=== PATIENT | female | born 1965 | race Caucasian/White ===

== ENCOUNTER 2017-06-08 19:07 | Emergency (ER) | payer OTHER ==
[~2017-06-08] VITALS: Ht 162.6 cm; Wt 65.9 kg
[2017-06-08] MEDS ORDERED: LOSA50TA37 PO (19:13)
[2017-06-08 19:29] VITALS: BP 154/78
[2017-06-08] MEDS ORDERED: IBUPROFEN 600 MG TABLET PO ONE (19:45)
== END 2017-06-08 20:59 | disposition home or self-care (01) ==
LOC: EMS 19:09 → EEVIPCON 19:09 → EMS 20:59
DX: S50.01XA Contusion of right elbow, initial encounter (principal); I10 Essential (primary) hypertension; K21.9 Gastro-esophageal reflux disease without esophagitis; W20.8XXA Other cause of strike by thrown, projected or falling object, initial encounter; Y93.89 Activity, other specified; Y92.69 Other specified industrial and construction area as the place of occurrence of the external cause; Y99.0 Civilian activity done for income or pay
CPT/HCPCS: 99284

== ENCOUNTER → 2017-08-20 | Outpatient (CLI) | payer OTHER ==
[~2017-08-20] MED LIST: LOSA50TA37 PO
== END | disposition home or self-care (01) ==
LOC: RADPV 10:05
PROVIDERS: ATTEND Nurse Practitioner
DX: R94.5 Abnormal results of liver function studies (principal); R10.11 Right upper quadrant pain
CPT/HCPCS: 76705

== ENCOUNTER → 2017-10-29 | Outpatient (CLI) | payer OTHER ==
[2017-10-29 11:34] LABS: BASOPHILS % (AUTO) 0.9 % (0.0-2.0); EOSINOPHILS % (AUTO) 4.8 % (1.0-6.0); HEMATOCRIT 39.7 % (36-46); HEMOGLOBIN 13.8 g/dL (12.0-16.0); LYMPHOCYTES # (AUTO) 3.1 K/uL (1.0-4.8); LYMPHOCYTES % (AUTO) 41.8 % (22.0-44.0); MEAN CORPUSCULAR HEMOGLOBIN 29.3 pg (26.0-34.0); MEAN CORPUSCULAR HGB CONC 34.8 G/dL (31.0-37.0); MEAN CORPUSCULAR VOLUME 84 fL (80-100); MONOCYTES # (AUTO) 0.5 K/uL (0.1-1.0); MONOCYTES % (AUTO) 6.9 % (2.0-9.0); NEUTROPHILS # (AUTO) 3.4 K/uL (1.8-7.7); NEUTROPHILS % (AUTO) 45.6 % (40.0-70.0); PLATELET COUNT (AUTO) 348 K/uL (150-450); RED BLOOD CELL COUNT(AUTO) 4.72 MIL/uL (4.00-5.20); RED CELL DISTRIBUTION WIDTH 12.8 % (11.5-14.5)
[2017-10-29 12:13] LABS: ALANINE AMINOTRANSFERASE 69 U/L (12-78); ALBUMIN 4.2 g/dL (3.4-5.0); ALKALINE PHOSPHATASE 138 U/L (46-116); ANION GAP 9 mmol/L (8-16); ASPARTATE AMINOTRANSFERASE 37 U/L (15-37); BILIRUBIN,TOTAL 0.5 mg/dL (0.1-1.0); CALCIUM, TOTAL 9.6 mg/dL (8.8-10.5); CARBON DIOXIDE 28 mmol/L (22-29); CHLORIDE 105 mmol/L (98-107); CHOL/HDL RATIO 3.3 (3.9-5.7); CHOLESTEROL 248 mg/dL (131-200); CREATININE 0.76 mg/dL (0.60-1.30); GLOMERULAR FILTR. RATE CALC > 60 mL/min (>60); GLUCOSE,RANDOM 78 mg/dL (70-110); HDL CHOLESTEROL 75 mg/dL (40-60); LDL CHOL (CALC.) 158 mg/dL (0-130); SODIUM SERUM 142 mmol/L (136-145); TOTAL PROTEIN, SERUM 7.9 g/dL (6.4-8.2); TRIGLYCERIDES 76 mg/dL (15-150); UREA NITROGEN, BLOOD 16 mg/dL (7-18)
== END | disposition home or self-care (01) ==
LOC: LABPV 09:10
PROVIDERS: ATTEND Nurse Practitioner
DX: I10 Essential (primary) hypertension (principal); E78.1 Pure hyperglyceridemia; E55.9 Vitamin D deficiency, unspecified
CPT/HCPCS: 82306

== ENCOUNTER → 2018-03-28 | Outpatient (CLI) | payer OTHER ==
[2018-03-28 10:25] LABS: BASOPHILS % (AUTO) 0.3 % (0.0-2.0); EOSINOPHILS % (AUTO) 0.1 % (1.0-6.0); HEMATOCRIT 38.8 % (36-46); HEMOGLOBIN 13.1 g/dL (12.0-16.0); LYMPHOCYTES # (AUTO) 2.4 K/uL (1.0-4.8); LYMPHOCYTES % (AUTO) 23.2 % (22.0-44.0); MEAN CORPUSCULAR HEMOGLOBIN 28.9 pg (26.0-34.0); MEAN CORPUSCULAR HGB CONC 33.7 G/dL (31.0-37.0); MEAN CORPUSCULAR VOLUME 86 fL (80-100); MONOCYTES # (AUTO) 0.5 K/uL (0.1-1.0); MONOCYTES % (AUTO) 4.5 % (2.0-9.0); NEUTROPHILS # (AUTO) 7.5 K/uL (1.8-7.7); NEUTROPHILS % (AUTO) 71.9 % (40.0-70.0); PLATELET COUNT (AUTO) 327 K/uL (150-450); RED BLOOD CELL COUNT(AUTO) 4.52 MIL/uL (4.00-5.20); RED CELL DISTRIBUTION WIDTH 13.6 % (11.5-14.5)
[2018-03-28 10:57] LABS: ALANINE AMINOTRANSFERASE 41 U/L (12-78); ALBUMIN 3.6 g/dL (3.4-5.0); ALKALINE PHOSPHATASE 98 U/L (46-116); ANION GAP 6 mmol/L (8-16); ASPARTATE AMINOTRANSFERASE 27 U/L (15-37); BILIRUBIN,TOTAL 0.4 mg/dL (0.1-1.0); CALCIUM, TOTAL 9.4 mg/dL (8.8-10.5); CARBON DIOXIDE 29 mmol/L (22-29); CHLORIDE 106 mmol/L (98-107); CHOL/HDL RATIO 2.4 (3.9-5.7); CHOLESTEROL 232 mg/dL (131-200); CREATININE 0.78 mg/dL (0.60-1.30); FREE THYROXINE INDEX 3.4 (1.4-4.5); GLOMERULAR FILTR. RATE CALC > 60 mL/min (>60); GLUCOSE,RANDOM 103 mg/dL (70-110); HDL CHOLESTEROL 98 mg/dL (40-60); LDL CHOL (CALC.) 119 mg/dL (0-130); POTASSIUM 4.6 mmol/L (3.5-5.1); SODIUM SERUM 141 mmol/L (136-145); T3 UPTAKE 34 % (31-39); TOTAL PROTEIN, SERUM 7.1 g/dL (6.4-8.2); TRIGLYCERIDES 73 mg/dL (15-150); UREA NITROGEN, BLOOD 14 mg/dL (7-18)
== END | disposition home or self-care (01) ==
LOC: LABPV 08:18
PROVIDERS: ATTEND Nurse Practitioner
DX: Z13.9 Encounter for screening, unspecified (principal); E78.1 Pure hyperglyceridemia; E55.9 Vitamin D deficiency, unspecified; K21.9 Gastro-esophageal reflux disease without esophagitis; I10 Essential (primary) hypertension
CPT/HCPCS: 82306; 84436; 84443; 84479

== ENCOUNTER → 2018-04-25 | Outpatient (CLI) | payer OTHER ==
[~2018-04-25] MED LIST changes: +LOSA50TA25 PO; -LOSA50TA37 PO
== END | disposition home or self-care (01) ==
LOC: RADMN 13:35
PROVIDERS: ATTEND Specialist
DX: M77.11 Lateral epicondylitis, right elbow (principal); R60.0 Localized edema
CPT/HCPCS: 73221